=== PATIENT | male | born 1985 | race Caucasian/White ===

== ENCOUNTER 2020-01-12 02:35 | Emergency (ER) | payer OTHER ==
[~2020-01-12] VITALS: Ht 172.7 cm; Wt 86.2 kg
[~2020-01-12 02:35] MED LIST: HYDROCODONE-AP1 EAC6 PO; KEFLEX500 MG PO; NAPROSYN500 MG PO
[2020-01-12 03:43] LABS: CALCIUM 8.6 mg/dL (8.5-10.1); POTASSIUM 3.6 mmol/L (3.5-5.1)
[2020-01-12] MEDS ORDERED: BACTRIM DS TAB1 EAC1 PO (04:24)
[2020-01-12 05:58] VITALS: BP 132/70
== END 2020-01-12 05:59 | disposition home or self-care (01) ==
LOC: M.ERS 02:35
PROVIDERS: Emergency Medicine Emergency Medical Services
DX: L02.414 Cutaneous abscess of left upper limb (principal)

== ENCOUNTER 2021-08-07 01:29 | Emergency (ER) | payer OTHER ==
[~2021-08-07] VITALS: Ht 175.3 cm; Wt 86.2 kg
[~2021-08-07 01:29] MED LIST changes: +BACTRIM DS TAB1 EAC1 PO
[2021-08-07 02:43] LABS: INFLUENZA A ANTIGEN Negative (Negative); INFLUENZA B ANTIGEN Negative (Negative)
[2021-08-07 03:51] LABS: ABSOLUTE MONOCYTES 0.7 thou/uL (0.0-1.2); ABSOLUTE NEUTROPHILS 6.5 thou/uL (1.6-8.1); BASOPHILS 0.3 %; EOSINOPHILS 0.1 %; HEMATOCRIT 41.1 % (42.0-52.0); HEMOGLOBIN 13.9 gm/dL (14.0-18.0); LYMPHOCYTES 12.1 %; MCH 26.8 pg (26.0-34.0); MCHC 33.9 g/dL (28.0-37.0); MCV 79.2 fL (80.0-100.0); MONOCYTES 8.1 %; MPV 7.6 fl. (7.2-11.1); NUCLEATED RBCS 0 /100WBC; PLATELET COUNT* 235 thou/uL (150-400); POLYS 79.4 %; RBC 5.18 mil/uL (4.50-6.00); RDW-CV 14.3 % (10.5-14.5); WBC 8.2 thou/uL (4.0-11.0)
[2021-08-07 04:05] LABS: CREATININE 0.9 mg/dL (0.6-1.3); POTASSIUM 4.2 mmol/L (3.5-5.1)
[2021-08-07 04:09] LABS: ALBUMIN 3.3 g/dL (3.4-5.0); TOTAL BILIRUBIN 0.3 mg/dL (<0.1-1.0)
[2021-08-07] MEDS ORDERED: MEDROLDOSEPACK PO (04:54)
[2021-08-07] MEDS ORDERED: PROMETH-CODEIN 65 ML PO (04:54)
[2021-08-07 05:53] VITALS: BP 104/69
--- NOTE | 2021-08-08 14:13 | EKG ---
[place] [address] ELECTROCARDIOGRAM REPORT Name: TATA STORM Room: [facility]#: [id number] Admission: 08/07/21 Attend Phys: Discharge: 08/07/21 Date of : 81 Date of Service: 08/07/219 Report #: [id number] THIS REPORT FOR: //name// [facility] ED Test Date: 2021-08-07 Test Time: 04:19:47 Pat Name: TATA STORM Department: Room: Gender: Marketing Sales Representative: NING : 1985 Requested By: Precious Jung Order Number: [id number] MD: Chandler Alvarez Measurements Intervals [place] Rate: 96 P: 60 IA: 152 QRS: 62 QRSD: 88 T: 20 QT: 332 QTc: 420 Interpretive Statements Sinus rhythm No previous ECG available for comparison Electronically Signed On 08-08-2021 14:13:43 CDT by Chandler Alvarez [email or web address] <ELECTRONICALLY SIGNED> By: Chandler Alvarez MD, [facility] 08/08/21 1413 0419 0419 Chandler Alvarez MD, FACC /EPI
== END 2021-08-07 05:53 | disposition home or self-care (01) ==
LOC: M.ERS 01:29
PROVIDERS: Personal Emergency Response Attendant
DX: U07.1 COVID-19 (principal)